=== PATIENT | female | born 1960 | race Caucasian/White ===

== ENCOUNTER 2016-11-26 11:22 | Emergency (ER) | payer SELFPAY ==
[~2016-11-26] VITALS: Ht 157.5 cm; Wt 172.0 kg
[2016-11-26] MEDS ORDERED: [UNRECOGNIZED DRUG - OTHER] PO (11:33)
[2016-11-26] MEDS ORDERED: IBUPROFEN 800 MG TABLET PO ONE (12:15)
[2016-11-26 12:56] VITALS: BP 147/75
== END 2016-11-26 13:09 | disposition home or self-care (01) ==
LOC: EMS 11:23
DX: S90.31XA Contusion of right foot, initial encounter (principal); S60.511A Abrasion of right hand, initial encounter; K21.9 Gastro-esophageal reflux disease without esophagitis; V09.9XXA Pedestrian injured in unspecified transport accident, initial encounter; Y93.01 Activity, walking, marching and hiking; Y92.89 Other specified places as the place of occurrence of the external cause; Y99.8 Other external cause status
CPT/HCPCS: 99283

== ENCOUNTER 2019-04-22 10:53 | Emergency (ER) | payer MEDICAID ==
[~2019-04-22] VITALS: Ht 157.5 cm; Wt 75.0 kg
[~2019-04-22 10:53] MED LIST: CIPR-278 PO; METR500 PO; ZOLP5 PO
[2019-04-22] MEDS ORDERED: IBUPROFEN 600 MG TABLET PO ONE (11:45)
[2019-04-22] MEDS ORDERED: CYCLOBENZAPRINE HCL 10 MG TABLET PO ONE (11:45)
[2019-04-22] MEDS ORDERED: LIDOCAINE 5% TRANSDERMAL PATCH TD ONE (11:45)
[2019-04-22 13:28] VITALS: BP 129/77
== END 2019-04-22 13:33 | disposition home or self-care (01) ==
LOC: EMS 10:57
DX: S59.902A Unspecified injury of left elbow, initial encounter (principal); M54.12 Radiculopathy, cervical region; K21.9 Gastro-esophageal reflux disease without esophagitis; Z98.51 Tubal ligation status; Z79.899 Other long term (current) drug therapy; Z88.5 Allergy status to narcotic agent; X50.1XXA Overexertion from prolonged static or awkward postures, initial encounter; Y93.89 Activity, other specified; Y92.89 Other specified places as the place of occurrence of the external cause; Y99.8 Other external cause status
CPT/HCPCS: 93005

== ENCOUNTER 2019-06-23 11:15 | Emergency (ER) | payer MEDICAID ==
[~2019-06-23] VITALS: Ht 165.1 cm; Wt 86.4 kg
[~2019-06-23 11:15] MED LIST changes: -CIPR-278 PO; -METR500 PO
[2019-06-23] MEDS ORDERED: IBUP-2271 PO (11:30)
[2019-06-23 12:39] LABS: BASOPHILS % (AUTO) 0.7 % (0.0-2.0); EOSINOPHILS % (AUTO) 3.1 % (1.0-6.0); HEMATOCRIT 42.4 % (36-46); HEMOGLOBIN 14.1 g/dL (12.0-16.0); LYMPHOCYTES # (AUTO) 2.3 K/uL (1.0-4.8); LYMPHOCYTES % (AUTO) 36.9 % (22.0-44.0); MEAN CORPUSCULAR HEMOGLOBIN 28.5 pg (26.0-34.0); MEAN CORPUSCULAR HGB CONC 33.1 G/dL (31.0-37.0); MEAN CORPUSCULAR VOLUME 86 fL (80-100); MONOCYTES # (AUTO) 0.5 K/uL (0.1-1.0); MONOCYTES % (AUTO) 7.4 % (2.0-9.0); NEUTROPHILS # (AUTO) 3.3 K/uL (1.8-7.7); NEUTROPHILS % (AUTO) 51.9 % (40.0-70.0); PLATELET COUNT (AUTO) 192 K/uL (150-450); RED BLOOD CELL COUNT(AUTO) 4.93 MIL/uL (4.00-5.20); RED CELL DISTRIBUTION WIDTH 14.4 % (11.5-14.5)
[2019-06-23 12:40] LABS: ANION GAP -2 mmol/L (8-16); CALCIUM, TOTAL 9.1 mg/dL (8.8-10.5); CARBON DIOXIDE 31 mmol/L (22-29); CHLORIDE 102 mmol/L (98-107); CREATININE 0.57 mg/dL (0.60-1.30); GLOMERULAR FILTR. RATE CALC > 60 mL/min (>60); GLUCOSE,RANDOM 96 mg/dL (70-110); POTASSIUM 4.5 mmol/L (3.5-5.1); SODIUM SERUM 131 mmol/L (136-145); UREA NITROGEN, BLOOD 10 mg/dL (7-18)
[2019-06-23 12:46] LABS: ALANINE AMINOTRANSFERASE 37 U/L (12-78); ALBUMIN 3.6 g/dL (3.4-5.0); ALKALINE PHOSPHATASE 93 U/L (46-116); ASPARTATE AMINOTRANSFERASE 33 U/L (15-37); BILIRUBIN,TOTAL 0.4 mg/dL (0.1-1.0); LIPASE 108 U/L (73-393)
[2019-06-23 13:44] LABS: APPEARANCE,URINE CLEAR (CLEAR); BILIRUBIN,URINE NEGATIVE (NEGATIVE); GLUCOSE, URINE (UA) NEGATIVE (NEGATIVE); KETONES,URINE NEGATIVE (NEGATIVE); LEUKOCYTE ESTERASE ,URINE TRACE (NEGATIVE); NITRATE,URINE NEGATIVE (NEGATIVE); OCCULT BLOOD,URINE NEGATIVE (NEGATIVE); PH,URINE 7.5 (5.0-8.0); PROTEIN,URINE NEGATIVE (NEGATIVE); UROBILINOGEN,URINE 0.2 mg/dL (<=1.0)
[2019-06-23 14:11] LABS: BACTERIA,URINE None Seen /HPF (None Seen); RBC,URINE None Seen /HPF (0-2); SQUAMOUS EPITHELIAL CELL,UR Few /LPF (None Seen)
[2019-06-23] MEDS ORDERED: SODIUM CHLORIDE 0.9% 100 ML ONE (14:17)
[2019-06-23] MEDS ORDERED: IOVERSOL 350 MG/ML 100 ML VIAL ONE (14:17)
[2019-06-23 16:45] VITALS: BP 126/80
== END 2019-06-23 16:45 | disposition home or self-care (01) ==
LOC: EMS 11:17
DX: K29.70 Gastritis, unspecified, without bleeding (principal); Z98.51 Tubal ligation status; Z88.5 Allergy status to narcotic agent
CPT/HCPCS: 36415; 74177; 80053; 81001; 83605; 83690; 84484; 85025; 99284; J7050; Q9967

== ENCOUNTER 2020-01-15 08:25 | Emergency (ER) | payer MEDICAID ==
[~2020-01-15] VITALS: Ht 160 cm; Wt 68.2 kg
[~2020-01-15 08:25] MED LIST changes: +IBUP-2271 PO; +ZOLP-280 PO; -ZOLP5 PO
[2020-01-15] MEDS ORDERED: MULT1CAP32 PO (08:33)
[2020-01-15 10:29] VITALS: BP 146/85
[2020-01-15] MEDS ORDERED: IBUPROFEN 600 MG TABLET PO ONE (10:45)
== END 2020-01-15 11:16 | disposition home or self-care (01) ==
LOC: EMS 08:40
DX: U07.1 COVID-19 (principal); B34.9 Viral infection, unspecified; J02.9 Acute pharyngitis, unspecified; K21.9 Gastro-esophageal reflux disease without esophagitis; F12.90 Cannabis use, unspecified, uncomplicated; Z88.5 Allergy status to narcotic agent
CPT/HCPCS: 71045; 87430; 99284; U0003

== ENCOUNTER 2020-03-07 14:53 | Emergency (ER) | payer MEDICAID ==
[~2020-03-07] VITALS: Ht 157.5 cm; Wt 63.6 kg
[~2020-03-07 14:53] MED LIST changes: -IBUP-2271 PO; +IBUP-2759 PO; +MULT1CAP32 PO; -ZOLP-280 PO
[2020-03-07 15:37] LABS: BASOPHILS % (AUTO) 0.7 % (0.0-2.0); EOSINOPHILS % (AUTO) 1.3 % (1.0-6.0); HEMATOCRIT 41.8 % (36-46); HEMOGLOBIN 13.7 g/dL (12.0-16.0); LYMPHOCYTES # (AUTO) 2.5 K/uL (1.0-4.8); MEAN CORPUSCULAR HEMOGLOBIN 27.3 pg (26.0-34.0); MEAN CORPUSCULAR HGB CONC 32.9 G/dL (31.0-37.0); MEAN CORPUSCULAR VOLUME 83 fL (80-100); MONOCYTES # (AUTO) 0.4 K/uL (0.1-1.0); MONOCYTES % (AUTO) 6.4 % (2.0-9.0); NEUTROPHILS # (AUTO) 3.1 K/uL (1.8-7.7); NEUTROPHILS % (AUTO) 50.6 % (40.0-70.0); PLATELET COUNT (AUTO) 227 K/uL (150-450); RED BLOOD CELL COUNT(AUTO) 5.04 MIL/uL (4.00-5.20); RED CELL DISTRIBUTION WIDTH 15.5 % (11.5-14.5)
[2020-03-07 15:42] LABS: ANION GAP 7 mmol/L (8-16); CALCIUM, TOTAL 9.6 mg/dL (8.8-10.5); CARBON DIOXIDE 28 mmol/L (22-29); CHLORIDE 108 mmol/L (98-107); CREATININE 0.75 mg/dL (0.60-1.30); GLOMERULAR FILTR. RATE CALC > 60 mL/min (>60); GLUCOSE,RANDOM 96 mg/dL (70-110); POTASSIUM 4.2 mmol/L (3.5-5.1); SODIUM SERUM 143 mmol/L (136-145); UREA NITROGEN, BLOOD 14 mg/dL (7-18)
[2020-03-07] MEDS ORDERED: SODIUM CHLORIDE 0.9% 1,000 ML IV ONE (15:45)
[2020-03-07] MEDS ORDERED: HYDROmorphone 2 MG/ML SYRINGE IVP ONE (15:45)
[2020-03-07] MEDS ORDERED: ONDANSETRON HCL 4 MG/2 ML VIAL IVP ONE (15:45)
[2020-03-07 15:49] LABS: ALANINE AMINOTRANSFERASE 24 U/L (12-78); ALKALINE PHOSPHATASE 105 U/L (46-116); ASPARTATE AMINOTRANSFERASE 21 U/L (15-37); BILIRUBIN,TOTAL 0.9 mg/dL (0.1-1.0); LIPASE 80 U/L (73-393); TOTAL PROTEIN, SERUM 7.8 g/dL (6.4-8.2)
[2020-03-07 18:30] LABS: APPEARANCE,URINE CLEAR (CLEAR); BILIRUBIN,URINE NEGATIVE (NEGATIVE); GLUCOSE, URINE (UA) NEGATIVE (NEGATIVE); KETONES,URINE NEGATIVE (NEGATIVE); LEUKOCYTE ESTERASE ,URINE SMALL (NEGATIVE); NITRATE,URINE NEGATIVE (NEGATIVE); OCCULT BLOOD,URINE NEGATIVE (NEGATIVE); PROTEIN,URINE NEGATIVE (NEGATIVE); UROBILINOGEN,URINE 0.2 mg/dL (<=1.0)
[2020-03-07 18:48] LABS: BACTERIA,URINE None Seen /HPF (None Seen); RBC,URINE 0-2 /HPF (0-2); WBC,URINE 0-2 /HPF (0-5)
[2020-03-07 18:49] LABS: SQUAMOUS EPITHELIAL CELL,UR Few /LPF (None Seen)
[2020-03-07 19:12] VITALS: BP 130/79
[2020-03-07] MEDS ORDERED: KETOROLAC TROMETHAMINE 30 MG/ML VIAL IVP ONE (19:30)
== END 2020-03-07 20:45 | disposition home or self-care (01) ==
LOC: EMS 14:58
DX: K21.9 Gastro-esophageal reflux disease without esophagitis (principal); Z88.5 Allergy status to narcotic agent
CPT/HCPCS: 36415; 71045; 74176; 80053; 81001; 83690; 84484; 85025; 93005; 96361; 96374; 96375; 99285; J1170; J1885; J2405; J7030